=== PATIENT | male | born 1960 | race Caucasian/White ===

== ENCOUNTER 2024-10-28 20:50 | Emergency (ER) | payer OTHER, SELFPAY ==
[2024-10-28 20:54] VITALS: BP 113/73; PULSE 82; RESP 22; TEMP 37.5; O2SAT 98; BMI 17.3
--- NOTE | 2024-10-28 21:09 | ED_ITS ---
HPI - General Adult General Chief complaint: Nausea/Vomiting Stated complaint: fell, lightheaded Time Seen by Provider: 10/28/24 21:04 History of Present Illness HPI narrative: This 63-year-old male comes in reporting a syncopal event. He states that he began to feel ill 2 days ago with nasal congestion, cough, subjective fever, and generalized malaise. He did have a vomiting episode on that day and did so again today. He states that he ambulated down stairs to use the restroom and stopped at the refrigerator. He began to feel lightheaded in this process and did lose consciousness. He fell and does not complain of any injury. He does not have a headache. A trauma team activation is initiated upon arrival as this was an unwitnessed fall. The patient is not on any anticoagulants. Related Data Home Medications ?Medication ?Instructions ?Recorded ?Confirmed No Known Home Medications 10/28/24 10/28/24 Allergies Allergy/AdvReac Type Severity Reaction Status Date / Time No Known Drug Allergies Allergy Verified 10/28/24 20:59 Review of Systems Status of ROS: Reports: 10 or more systems reviewed and unremarkable except as noted in History and below Narrative: Constitutional: No fevers, no weight gain or loss. Eyes: No discharge. No vision changes. HENT: No sore throat, no ear pain. He reports congestion. Cardiovascular: No chest pain, no palpitations. Respiratory: No shortness of breath, no wheezes. He has a cough. Gastrointestinal: No abdominal pain, no diarrhea. Some nausea and occasional vomiting. He states that he has not eaten anything and not much to drink. Genitourinary: No dysuria, no hematuria. Musculoskeletal: Normal range of motion. Skin: No rashes, no pruritis. Neurological: No dizziness, weakness, sensory change, speech change. Endo/Heme/Allergies: No bruising or bleeding. No polydipsia. Pysch: no suicidality, no anxiety, no insomnia. All other systems reviewed and are negative. Exam Narrative: Exam Narrative: Primary Survey: Vital Signs are within normal limits. Airway: Open. Breathing: Easy. Circulation: no obvious bleeding; normal capillary refill. Disability: GCS is 15. Normal pupillary response and motor movements. Secondary Survey: Head: Normocephalic Neck: No midline tenderness. ROM intact. Chest: Non tender. No external signs of trauma. Abdomen: Non tender. No rebound tenderness. Normal bowel sounds. Pelvis/Genitals: No tenderness to A/P and lateral stress. Extremities: Atraumatic. Back: No midline tenderness. No sign of injury. Primary and Secondary surveys are completed. The patient's GCS is 15. Const: Vital Signs, click to edit/add: Vital Signs - 24 hr 10/28/24 20:54 Temperature 99.5 F Pulse Rate [Right Pulse Oximeter] 82 Respiratory Rate 22 Blood Pressure [Ri ght Upper Arm] 113/73 Pulse Oximetry 98 Oxygen Delivery Me thod Room Air Course Vital Signs Vital signs: Initial Vital Signs Temperature 99.5 F 10/28/24 20:54 Temperature Source Temporal Artery Scan 10/28/24 20:54 Pulse Rate 82 10/28/24 20:54 Pulse Rhythm Regular 10/28/24 20:54 Respiratory Rate 22 10/28/24 20:54 Blood Pressure 113/73 10/28/24 20:54 Blood Pressure Mean 86 10/28/24 20:54 Blood Pressure Position Sitting 10/28/24 20:54 Pulse Oximetry 98 10/28/24 20:54 Oxygen Delivery Method Room Air 10/28/24 20:54 Vital Signs Temperature 99.5 F 10/28/24 20:54 Pulse Rate 82 10/28/24 20:54 Respiratory Rate 22 10/28/24 20:54 Blood Pressure 113/73 10/28/24 20:54 Pulse Oximetry 98 10/28/24 20:54 Oxygen Delivery Method Room Air 10/28/24 20:54 Temperature 99.5 F 10/28/24 20:54 Pulse Rate 82 10/28/24 20:54 Respiratory Rate 22 10/28/24 20:54 Blood Pressure 113/73 10/28/24 20:54 Pulse Oximetry 98 10/28/24 20:54 Oxygen Delivery Method Room Air 10/28/24 20:54 Medical Decision Making MDM Narrative Medical decision making narrative: This patient comes in reporting generalized malaise for the past couple days. He did have some vomiting and grew lightheaded with loss of consciousness. He fell without injury. CT imaging of his head is negative for bleed or fracture. He does have changes in his sinuses typical of sinusitis. Lab results of his blood returned normal. Nasal pharyngeal swab is positive for influenza A. The patient is in his 2nd day of the symptoms so I did provide a [facility] prescription for Tamiflu. He did receive a L of normal saline intravenously and is feeling better. Lab Data Labs: Lab Results 10/28/24 10/28/24 10/28/24 Range/Units 19:02 21:09 21:39 WBC 9.71 (4.50-11.00) K/uL RBC 5.19 (4.30-5.90) m/uL Hgb 15.2 (13.5-17.5) gm/dL Hct 44.6 (37.0-53.0) % MCV 86 (80-100) fL MCH 29 (26-34) pg MCHC 34 (32-36) gm/dL RDW Coeff of Carisa 11.7 (11.5-15.5) % Plt Count 140 (140-440) K/uL Neut % (Auto) 85.0 H (42.0-72.0) % Lymph % (Auto) 8.4 L (20-44) % Baker % (Auto) 6.1 (0.0-11.0) % Eos % (Auto) 0.0 (0.0-7.0) % Baso % (Auto) 0.1 (0.0-3.0) % Neut # (Auto) 8.30 H (1.7-7.0) K/uL Lymph # (Auto) 0.80 L (0.90-2.90) K/uL Baker # (Auto) 0.60 (0.00-0.90) K/UL Eos # (Auto) 0.00 (0.00-0.50) K/uL Baso # (Auto) 0.01 (0.00-0.30) K/uL Abs Immat Gran (auto) 0.04 (0.00-0.30) K/uL Imm/Tot Granulo (auto) 0.4 % Sodium 134 L (135-149) mmol/L Potassium 4.8 (3.6-5.1) mmol/L Chloride 99 (96-114) mmol/L Carbon Dioxide 26 (20-32) mmol/L Anion Gap 9 (7-15) mEq/L BUN 35 H (7-30) mg/dL Creatinine 1.2 (0.5-1.5) mg/dL Estimated Creat Clear 55.28 Estimated GFR 68 ml/min Glucose 113 (60-115) mg/dL Calcium 8.7 (8.4-10.6) mg/dL SARS-CoV-2 (PCR) Negative SARS-CoV-2 (Negative) Influenza Type A (PCR) POSITIVE PCR FLU A A (Negative) Influenza Type B (PCR) Negative PCR FLU B (Negative) RSV (PCR) Negative PCR RSV (Negative) POC Troponin I 0.01 (0.01-0.04) ng/ml Imaging Data CT scan - head: Radiologist's impression: 1. No evidence of acute infarction, intracranial hemorrhage, or mass-effect seen. 2. Mucosal thickening is seen in the maxillary sphenoid and frontal sinuses. Opacification of the ethmoid air cells are present bilaterally. Findings are likely due to pansinusitis. ECG Data Attestation: I personally reviewed and interpreted this ECG as follows: Interpretation: Normal sinus rhythm. Rate is 79 beats per minute. There are no ST or T-wave abnormalities. Discharge Plan Discharge Clinical Impression: Influenza A Patient Disposition: Home, Self-Care Condition: Improved Additional Instructions: Take medication as prescribed. Use [id number] medicines also as needed and directed. Follow up with MD return if worsening. Prescriptions: No Action No Known Home Medications Follow Up/Referrals: Drew Diaz MD [Primary Care Provider] - Stand Alone Forms: [employer] Info Instructions
--- NOTE | 2024-10-28 21:11 | CRLHL7_ITS ---
For Patients: As a result of the Cures Act, medical imaging exams and procedure reports are released immediately into your electronic medical record. You may view this report before your referring provider. If you have questions, please contact your health care provider. INDICATION: Fall, syncope, hit head TECHNIQUE: CT Head without i.v. contrast. Coronal and sagittal reformats were obtained. COMPARISON: None FINDINGS: CSF space: The ventricles are normal for age. Brain: No evidence of mass, acute infarction or hemorrhage is seen. No mass-effect or midline shift is seen. The brain parenchyma is otherwise normal in appearance with preservation of the pierce-white matter junction. Calvarium: Mucosal thickening is seen in the maxillary sphenoid and frontal sinuses. Opacification of the ethmoid air cells are present bilaterally. The mastoid air cells are clear. The visualized orbits are grossly unremarkable. The calvarium is unremarkable in appearance with no fractures identified. IMPRESSIONS: 1. No evidence of acute infarction, intracranial hemorrhage, or mass-effect seen. 2. Mucosal thickening is seen in the maxillary sphenoid and frontal sinuses. Opacification of the ethmoid air cells are present bilaterally. Findings are likely due to pansinusitis. Dictated by Sandeep Galvan MD @ 10/28/2024 9:22:46 PM Please note that all CT scans at this facility use dose modulation, iterative reconstruction, and/or weight-based dosing when appropriate to reduce radiation dose to as low as reasonably achievable. Dictated by: Sandeep Galvan MD @ 10/28/2024 21:24:24 (Electronically Signed)
[2024-10-28 21:47] LABS: PCR FLU A POSITIVE PCR FLU A (Negative); PCR FLU B Negative PCR FLU B (Negative); PCR RSV Negative PCR RSV (Negative); SARS PCR* Negative SARS-CoV-2 (Negative)
[2024-10-28 21:58] LABS: Basophils Absolute Auto 0.01 K/uL (0.00-0.30); Basophils Percent Auto 0.1 % (0.0-3.0); Hematocrit 44.6 % (37.0-53.0); Hemoglobin* 15.2 gm/dL (13.5-17.5); Immature Granulocytes Abs Auto 0.04 K/uL (0.00-0.30); Immature Granulocytes Pct Auto 0.4 %; Lymphocytes Percent Auto 8.4 % (20-44); Mean Corpuscular HGB Conc 34 gm/dL (32-36); Mean Corpuscular Hemoglobin 29 pg (26-34); Mean Corpuscular Volume 86 fL (80-100); Monocytes Percent Auto 6.1 % (0.0-11.0); Platelet Count* 140 K/uL (140-440); RDW Coefficient of Variation % 11.7 % (11.5-15.5); Red Blood Count 5.19 m/uL (4.30-5.90); White Blood Count* 9.71 K/uL (4.50-11.00)
[2024-10-28 22:04] LABS: Slide Review Reflex No
[2024-10-28 22:11] LABS: Troponin, Point-of-Care* 0.01 ng/ml (0.01-0.04)
[2024-10-28 22:26] LABS: Chloride* 99 mmol/L (96-114); Potassium* 4.8 mmol/L (3.6-5.1); Sodium* 134 mmol/L (135-149)
[2024-10-28 22:28] LABS: Creatinine* 1.2 mg/dL (0.5-1.5); Est. Creatinine Clearance* 55.28; Estimated Glomerular Filt Rate 68 ml/min
[2024-10-28 22:29] LABS: Anion Gap 9 mEq/L (7-15); Blood Urea Nitrogen* 35 mg/dL (7-30); Calcium* 8.7 mg/dL (8.4-10.6); Carbon Dioxide* 26 mmol/L (20-32); Glucose* 113 mg/dL (60-115)
== END 2024-10-28 23:03 | disposition home or self-care (01) ==
PROVIDERS: Emergency Provider Emergency Medicine Emergency Medical Services; PCP Family Medicine
DX: J09.X2 Influenza due to identified novel influenza A virus with other respiratory manifestations (principal)
CPT/HCPCS: 36415; 70450; 80048; 84484; 85025; 87631; 93005; 99284; 99291